=== PATIENT | female | born 1985 | race American Indian/Alaskan Native ===

== ENCOUNTER 2017-05-27 23:24 | Emergency (ER) | payer OTHER, MEDICAID ==
[2017-05-28 00:27] VITALS: BP 114/67
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
== END 2017-05-28 05:09 | disposition home or self-care (01) ==
LOC: ED 23:24
DX: M54.6 Pain in thoracic spine (principal); J45.909 Unspecified asthma, uncomplicated; V43.02XA Car driver injured in collision with other type car in nontraffic accident, initial encounter; Y92.481 Parking lot as the place of occurrence of the external cause; Y93.89 Activity, other specified; Y99.8 Other external cause status
CPT/HCPCS: 99282

== ENCOUNTER 2019-06-18 08:41 | Emergency (ER) | payer MEDICAID ==
--- NOTE | 2019-06-18 10:03 | Emergency Department Report ---
ED General Adult HPI - General Chief complaint: Fall Stated complaint: BACK/NECK BUTTOCK INJURY Time Seen by Provider: 06/18/19 09:46 Source: patient Mode of arrival: Ambulatory Limitations: No Limitations - History of Present Illness Initial comments: 34-year-old female who states that she slipped on the floor at [facility] yesterday. She complains of discomfort which she describes as a burning in her cervical area and lumbar spine generally. She is able to walk without difficulty. She's had no problems with radiating pain, numbness or weakness. She does not report any prior significant injury of those areas. Her mid back is not affected. She is requesting x-ray examination. -: days(s) Location: neck, back Quality: burning Consistency: intermittent Improves with: none Worsens with: none Associated Symptoms: denies other symptoms Treatments Prior to Arrival: none - Related Data Home Medications Medication Instructions Recorded Confirmed Last Taken Pnv Plus Multivit Tab 1 tab PO DAILY 07/16/15 07/16/15 Unknown Previous Rx's Medication Instructions Recorded Last Taken Type Docusate Sodium [Colace CAP] 100 mg PO BID #60 capsule 07/14/15 Unknown Rx Ibuprofen [Motrin 800 MG tab] 800 mg PO Q8HR PRN #90 tablet 07/14/15 Unknown Rx oxyCODONE /ACETAMINOPHEN [Percocet 1 tab PO Q6HR PRN #30 tablet 07/14/15 Unknown Rx 5/325 mg] ALBUTEROL Inhaler (OR & NICU) 2 puff IH QID PRN #1 inhalation 05/03/16 Unknown Rx [ProAir HFA Inhaler] predniSONE [Deltasone] 50 mg PO QAM #5 tablet 05/03/16 Unknown Rx Cyclobenzaprine [Flexeril] 10 mg PO TID PRN #12 tablet 05/28/17 Unknown Rx Ibuprofen [Motrin] 600 mg PO Q8H PRN #25 tablet 05/28/17 Unknown Rx Allergies Allergy/AdvReac Type Severity Reaction Status Date / Time morphine Allergy Angioedema Verified 06/18/19 08:52 ED Review of Systems ROS: Stated complaint: BACK/NECK BUTTOCK INJURY Other details as noted in HPI Constitutional: denies: chills, fever Eyes: denies: eye pain, eye discharge, vision change ENT: denies: ear pain, throat pain Respiratory: denies: cough, shortness of breath, wheezing Cardiovascular: denies: chest pain, palpitations Endocrine: no symptoms reported Gastrointestinal: denies: abdominal pain, nausea, diarrhea Genitourinary: denies: urgency, dysuria, discharge Musculoskeletal: as per HPI, back pain, myalgia. denies: joint swelling, arthralgia Skin: denies: rash, lesions Neurological: denies: headache, weakness, paresthesias Psychiatric: denies: anxiety, depression Hematological/Lymphatic: denies: easy bleeding, easy bruising ED Past Medical Hx - Past Medical History Hx Hypertension: No Hx Congestive Heart Failure: No Hx Diabetes: No Hx Deep Vein Thrombosis: No Hx Renal Disease: No Hx Sickle Cell Disease: No Hx Seizures: No Hx Asthma: Yes Hx COPD: No Hx HIV: No - Surgical History Additional Surgical History: c sectX4 - Social History Smoking Status: Never Smoker Substance Use Type: None - Medications Home Medications: Home Medications Medication Instructions Recorded Confirmed Last Taken Type Docusate Sodium [Colace CAP] 100 mg PO BID #60 capsule 07/14/15 Unknown Rx Ibuprofen [Motrin 800 MG tab] 800 mg PO Q8HR PRN #90 tablet 07/14/15 Unknown Rx oxyCODONE /ACETAMINOPHEN [Percocet 1 tab PO Q6HR PRN #30 tablet 07/14/15 Unknown Rx 5/325 mg] Pnv Plus Multivit Tab 1 tab PO DAILY 07/16/15 07/16/15 Unknown History ALBUTEROL Inhaler (OR & NICU) 2 puff IH QID PRN #1 inhalation 05/03/16 Unknown Rx [ProAir HFA Inhaler] predniSONE [Deltasone] 50 mg PO QAM #5 tablet 05/03/16 Unknown Rx Cyclobenzaprine [Flexeril] 10 mg PO TID PRN #12 tablet 05/28/17 Unknown Rx Ibuprofen [Motrin] 600 mg PO Q8H PRN #25 tablet 05/28/17 Unknown Rx ED Physical Exam - General Limitations: No Limitations General appearance: alert, in no apparent distress - Head Head exam: Present: atraumatic, normocephalic - Eye Eye exam: Present: normal appearance. Absent: scleral icterus - ENT ENT exam: Present: mucous membranes moist - Neck Neck exam: Present: normal inspection, full ROM. Absent: tenderness (no vertebral tenderness), meningismus, lymphadenopathy, thyromegaly - Respiratory Respiratory exam: Present: normal lung sounds bilaterally. Absent: respiratory distress - Cardiovascular Cardiovascular Exam: Present: regular rate, normal rhythm. Absent: systolic murmur, diastolic murmur, rubs, gallop - GI/Abdominal GI/Abdominal exam: Present: soft, normal bowel sounds. Absent: distended, tenderness, guarding, rebound, rigid - Extremities Exam Extremities exam: Present: normal inspection - Back Exam Back exam: Present: normal inspection - Neurological Exam Neurological exam: Present: alert, oriented X3, CN II-XII intact. Absent: motor sensory deficit - Psychiatric Psychiatric exam: Present: normal affect, normal mood - Skin Skin exam: Present: warm, dry, intact, normal color. Absent: rash ED Course Vital Signs 06/18/19 06/18/19 08:45 11:27 Temperature 98.5 F Pulse Rate 74 Respiratory 16 15 Rate Blood Pressure 111/62 O2 Sat by Pulse 99 Oximetry ED Medical Decision Making - Radiology Data Radiology results: report reviewed No significant abnormality per radiologist. Critical care attestation.: If time is entered above; I have spent that time in minutes in the direct care of this critically ill patient, excluding procedure time. ED Disposition Clinical Impression: Soft tissue injury Disposition: DC-01 TO HOME OR SELFCARE Is pt being admited?: No Does the pt Need Aspirin: No Condition: Stable Instructions: Cervical Sprain (ED), Low Back Strain (ED) Additional Instructions: [id number] medication like Motrin or Aleve. Follow up with the primary care physician. Referrals: [facility] [Provider Group] - 3-5 Days Time of Disposition: 12:18
--- NOTE | 2019-06-18 11:50 | XRay Report ---
XR spine cervical 2-3V INDICATION / CLINICAL INFORMATION: Neck pain after fall. COMPARISON: None available. FINDINGS: BONES/JOINT(S): No vertebral fracture. No significant degenerative changes. Overall normal alignment. SOFT TISSUES: No significant abnormality. ADDITIONAL FINDINGS: None. Signer Name: Reji Cullen MD Signed: 06/18/2019 11:46 AM Workstation Name: [email or web address]
--- NOTE | 2019-06-18 11:51 | XRay Report ---
XR spine lumbosacral 2-3V INDICATION / CLINICAL INFORMATION: Low back pain after fall. COMPARISON: None available. FINDINGS: BONES/JOINT(S): No vertebral fracture. No significant degenerative changes. Overall normal alignment. SOFT TISSUES: No significant abnormality. ADDITIONAL FINDINGS: None. Signer Name: Reji Cullen MD Signed: 06/18/2019 11:46 AM Workstation Name: [email or web address]
[2019-06-18 12:33] VITALS: BP 118/58
== END 2019-06-18 12:39 | disposition home or self-care (01) ==
LOC: ED 08:41
DX: M54.2 Cervicalgia (principal); M54.89 Other dorsalgia; J45.909 Unspecified asthma, uncomplicated; Z79.899 Other long term (current) drug therapy; Z88.6 Allergy status to analgesic agent
CPT/HCPCS: 72040; 72100

== ENCOUNTER 2020-11-20 09:08 | Emergency (ER) | payer MEDICAID ==
--- NOTE | 2020-11-20 09:26 | Emergency Department Report ---
ED General Adult HPI - General Chief complaint: Pain General Stated complaint: BODY PAIN Time Seen by Provider: 11/20/20 09:23 Source: patient Mode of arrival: Ambulatory Limitations: No Limitations - History of Present Illness Initial comments: 35-year-old F [place] female presents emergency department complaining of a less than 1 day history of coryza, myalgia, fatigue/exhaustion which is been progressively worsening since the onset. She reports no known contact with any coronavirus or any other sick individuals. Reports no fever, chills, sweats. Ports no chest pain, no palpitations. No cough, no hemoptysis, hematemesis hematochezia. States under over the past 2 to 3 weeks has been dealing with excessive amount of stress due to a loss and has been having some issues with mood swings and her emotions since that time I would like to speak to a mental health professional on what she should do. States she is not suicidal or homicidal. She denies any auditory or visual hallucinations. - Related Data Home Medications Medication Instructions Recorded Confirmed Last Taken Pnv Plus Multivit Tab 1 tab PO DAILY 07/16/15 07/16/15 Unknown Previous Rx's Medication Instructions Recorded Last Taken Type Docusate Sodium [Colace CAP] 100 mg PO BID #60 capsule 07/14/15 Unknown Rx oxyCODONE /ACETAMINOPHEN [Percocet 1 tab PO Q6HR PRN #30 tablet 07/14/15 Unknown Rx 5/325 mg] Albuterol Mdi (or & Nicu Only) 2 puff IH QID PRN #1 inhalation 05/03/16 Unknown Rx [ProAir HFA Inhaler] predniSONE [Deltasone] 50 mg PO QAM #5 tablet 05/03/16 Unknown Rx Cyclobenzaprine [Flexeril] 10 mg PO TID PRN #12 tablet 05/28/17 Unknown Rx Ibuprofen [Motrin] 600 mg PO Q8H PRN #25 tablet 05/28/17 Unknown Rx Ibuprofen [Motrin 800 MG tab] 800 mg PO Q8HR PRN #10 tablet 06/18/19 Unknown Rx Allergies Allergy/AdvReac Type Severity Reaction Status Date / Time morphine Allergy Angioedema Verified 06/18/19 08:52 ED Review of Systems ROS: Stated complaint: BODY PAIN Other details as noted in HPI Comment: All other systems reviewed and negative ED Past Medical Hx - Past Medical History Previous Medical History?: Yes Hx Hypertension: No Hx Congestive Heart Failure: No Hx Diabetes: No Hx Deep Vein Thrombosis: No Hx Renal Disease: No Hx Sickle Cell Disease: No Hx Seizures: No Hx Asthma: Yes Hx COPD: No Hx HIV: No - Surgical History Past Surgical History?: Yes Additional Surgical History: c sectX4 - Social History Smoking Status: Never Smoker Substance Use Type: None - Medications Home Medications: Home Medications Medication Instructions Recorded Confirmed Last Taken Type Docusate Sodium [Colace CAP] 100 mg PO BID #60 capsule 07/14/15 Unknown Rx oxyCODONE /ACETAMINOPHEN [Percocet 1 tab PO Q6HR PRN #30 tablet 07/14/15 Unknown Rx 5/325 mg] Pnv Plus Multivit Tab 1 tab PO DAILY 07/16/15 07/16/15 Unknown History Albuterol Mdi (or & Nicu Only) 2 puff IH QID PRN #1 inhalation 05/03/16 Unknown Rx [ProAir HFA Inhaler] predniSONE [Deltasone] 50 mg PO QAM #5 tablet 05/03/16 Unknown Rx Cyclobenzaprine [Flexeril] 10 mg PO TID PRN #12 tablet 05/28/17 Unknown Rx Ibuprofen [Motrin] 600 mg PO Q8H PRN #25 tablet 05/28/17 Unknown Rx Ibuprofen [Motrin 800 MG tab] 800 mg PO Q8HR PRN #10 tablet 06/18/19 Unknown Rx ED Physical Exam - General Limitations: No Limitations General appearance: alert, in no apparent distress - Head Head exam: Present: atraumatic, normocephalic - Eye Eye exam: Present: normal appearance, PERRL Pupils: Present: normal accommodation - ENT ENT exam: Present: normal exam, mucous membranes moist, TM's normal bilaterally - Neck Neck exam: Present: normal inspection, full ROM - Respiratory Respiratory exam: Present: normal lung sounds bilaterally. Absent: respiratory distress, wheezes, rales, accessory muscle use, decreased breath sounds - Cardiovascular Cardiovascular Exam: Present: regular rate, normal rhythm. Absent: systolic murmur, diastolic murmur, rubs, gallop - GI/Abdominal GI/Abdominal exam: Present: soft, normal bowel sounds - Extremities Exam Extremities exam: Present: normal inspection, full ROM, normal capillary refill - Back Exam Back exam: Present: normal inspection. Absent: CVA tenderness (R), CVA tenderness (L) - Neurological Exam Neurological exam: Present: alert, oriented X3, CN II-XII intact, normal gait - Psychiatric Psychiatric exam: Present: depressed, agitated, other (Tearful) - Skin Skin exam: Present: warm, dry, intact, normal color. Absent: rash ED Course Vital Signs 11/20/20 09:11 Temperature 100.0 F H Pulse Rate 84 Respiratory 20 Rate Blood Pressure 117/77 O2 Sat by Pulse 98 Oximetry ED Medical Decision Making - Medical Decision Making 1. URI/body aches and low-grade temperature This 35-year-old female patient presents with symptoms suspicious for likely viral upper respiratory tract infection. Differential includes bacterial pneumonia, sinusitis, allergic rhinitis. Do not suspect underlying Cardiopulmonary process. I considered but think unlikely dangerous cause of this patient symptoms to include acute coronary syndrome, CHF or COPD exacerbations, pneumonia, pneumothorax. Patient is nontoxic appearing and not in need of emergent medical intervention. She was offered analgesic and nonnarcotic medications for her aches and pains but she did decline Plan: Reassurance, reassessment, [id number] medications, discharge with PCP follow-up 2. Anxiety/depression During examination Ms. Perez reports primarily having issues with a lot of stress and anxiety and depression due to some the events in her life as of r penelope over the last 2 to 3 weeks. She request to speak with a mental health provider regarding these issues stating that she may need some assistance at this point but she does deny suicidal homicidal ideation she also reports no hallucinations of any type. Critical care attestation.: If time is entered above; I have spent that time in minutes in the direct care of this critically ill patient, excluding procedure time. ED Disposition Clinical Impression: Depression, Anxiety, URI (upper respiratory infection) Disposition: Z-07 ELOPED Is pt being admited?: No Does the pt Need Aspirin: No Condition: Stable Instructions: Managing Anxiety, Adult, Upper Respiratory Infection, Adult Referrals: PRIMARY CARE, [Primary Care Provider] - 3-5 Days
[2020-11-20 10:23] VITALS: BP 117/77
== END 2020-11-20 10:30 | disposition left against medical advice (07) ==
LOC: ED 09:08
DX: J06.9 Acute upper respiratory infection, unspecified (principal); F32.9 Major depressive disorder, single episode, unspecified; F41.9 Anxiety disorder, unspecified; J45.909 Unspecified asthma, uncomplicated; Z98.890 Other specified postprocedural states; Z79.1 Long term (current) use of non-steroidal anti-inflammatories (NSAID); Z79.899 Other long term (current) drug therapy; Z88.8 Allergy status to other drugs, medicaments and biological substances
CPT/HCPCS: 99282